=== PATIENT | male | born 1985 | race Asian ===

== ENCOUNTER 2024-05-08 08:10 | Outpatient (CLI) | payer BC, SELFPAY ==
[2024-05-08 09:34] LABS: Alanine Aminotransferase 37 U/L (6-50); Alkaline Phosphatase 55 U/L (38-126); Anion Gap 10 mmol/L (4-12); Aspartate Amino Transferase 28 U/L (17-59); Bilirubin,Total 0.9 mg/dL (0.2-1.3); Blood Urea Nitrogen 23 mg/dL (9-20); Calcium 9.2 mg/dL (8.4-10.2); Carbon Dioxide 22 mmol/L (22-30); Chloride 108 mmol/L (98-107); Cholesterol 242 mg/dL (0-200); Estimated Glomerular Filt Rate > 60; Glucose 92 mg/dL (65-110); HDL Direct 54 mg/dL; Sodium 140 mmol/L (137-145); Triglycerides 160 mg/dL (<150)
[2024-05-08 09:46] LABS: LDL Cholesterol Direct 155 mg/dL
== END 2024-05-08 08:11 | disposition home or self-care (01) ==
LOC: ANHLAB 08:13
PROVIDERS: PCP Emergency Medicine; Visit Provider Internal Medicine Cardiovascular Disease
DX: E78.5 Hyperlipidemia, unspecified (principal)
CPT/HCPCS: 36415; 80053; 80061

== ENCOUNTER 2024-05-15 09:18 | Outpatient (CLI) | payer BC, SELFPAY ==
--- NOTE | 2024-05-15 09:25 | EST_ITS ---
Patient Info Name: Juan Cooper Age: 38 years : 1985 Gender: Male Ht: 72 in Wt: 191 lbs BSA: 2.11 m2 HR: 58 bpm BP: 129 / 85 mmHg Heart Rhythm: Sinus Rhythm Exam Date: 05/15/2024 9:34 AM Exam Location: Echo Lab Patient Status: Outpatient Admit Date: 05/15/2024 Staff Ordering Physician: Ruben Mayfield DO Attending Provider: Ruben Mayfield DO Exercise Technologist: Izabel Singh CT Exercise Physician: Ruben Mayfield DO Exam Type: CA stress test treadmill Study Info Indications R07.89 - Other chest pain A treadmill exercise stress test was performed. Summary 1. 1. Negative Juan exercise stress test for ischemic ST changes by ECG criteria. 2. 2. Good functional capacity, achieving 12 METs of workload. 3. 3. Appropriate HR response to exercise. 4. 4. Appropriate HR recovery at 1 minute post exercise. 5. 5. No imaging with stress testing. 6. 6. Patient informed of the above results. Protocol: Juan Stress ECG Details Stage: REST Duration (min): 0 min : 58 sec Speed (mph): 0.0 Grade (%): 0 HR (bpm): 59 SBP (mmHg): 129 DBP (mmHg): 85 METS: --- Stage: REST Duration (min): 18 min : 56 sec Speed (mph): 0.0 Grade (%): 0 HR (bpm): 69 SBP (mmHg): 129 DBP (mmHg): 85 METS: --- Stage: STAGE 1 Duration (min): 1 min : 0 sec Speed (mph): 1.7 Grade (%): 10 HR (bpm): 87 SBP (mmHg): 129 DBP (mmHg): 85 METS: --- Stage: STAGE 1 Duration (min): 2 min : 0 sec Speed (mph): 1.7 Grade (%): 10 HR (bpm): 86 SBP (mmHg): 129 DBP (mmHg): 85 METS: --- Stage: STAGE 1 Duration (min): 3 min : 0 sec Speed (mph): 1.7 Grade (%): 10 HR (bpm): 89 SBP (mmHg): 135 DBP (mmHg): 81 METS: --- Stage: STAGE 2 Duration (min): 1 min : 0 sec Speed (mph): 2.5 Grade (%): 12 HR (bpm): 102 SBP (mmHg): 135 DBP (mmHg): 81 METS: --- Stage: STAGE 2 Duration (min): 2 min : 0 sec Speed (mph): 2.5 Grade (%): 12 HR (bpm): 103 SBP (mmHg): 148 DBP (mmHg): 78 METS: --- Stage: STAGE 2 Duration (min): 3 min : 0 sec Speed (mph): 2.5 Grade (%): 12 HR (bpm): 105 SBP (mmHg): 148 DBP (mmHg): 78 METS: --- Stage: STAGE 3 Duration (min): 1 min : 0 sec Speed (mph): 3.4 Grade (%): 14 HR (bpm): 120 SBP (mmHg): 140 DBP (mmHg): 73 METS: --- Stage: STAGE 3 Duration (min): 2 min : 0 sec Speed (mph): 3.4 Grade (%): 14 HR (bpm): 129 SBP (mmHg): 140 DBP (mmHg): 73 METS: --- Stage: STAGE 3 Duration (min): 3 min : 0 sec Speed (mph): 3.4 Grade (%): 14 HR (bpm): 134 SBP (mmHg): 153 DBP (mmHg): 72 METS: --- Stage: STAGE 4 Duration (min): 1 min : 0 sec Speed (mph): 4.2 Grade (%): 16 HR (bpm): 146 SBP (mmHg): 153 DBP (mmHg): 72 METS: --- Stage: STAGE 4 Duration (min): 2 min : 0 sec Speed (mph): 4.2 Grade (%): 16 HR (bpm): 162 SBP (mmHg): 161 DBP (mmHg): 69 METS: --- -
== END 2024-05-15 09:19 | disposition home or self-care (01) ==
LOC: ANHCARD 09:19
PROVIDERS: PCP Emergency Medicine; Visit Provider Internal Medicine Cardiovascular Disease
DX: R07.89 Other chest pain (principal)
CPT/HCPCS: 93017

== ENCOUNTER 2024-08-25 08:44 | Outpatient (CLI) | payer BC, SELFPAY ==
[2024-08-25 10:25] LABS: Cholesterol 228 mg/dL (0-200); HDL Direct 57 mg/dL; Triglycerides 169 mg/dL (<150)
[2024-08-25 10:36] LABS: LDL Cholesterol Direct 121 mg/dL
== END 2024-08-25 08:45 | disposition home or self-care (01) ==
PROVIDERS: PCP Emergency Medicine; Visit Provider Internal Medicine Cardiovascular Disease
DX: E78.5 Hyperlipidemia, unspecified (principal)
CPT/HCPCS: 36415; 80061

== ENCOUNTER 2025-04-21 09:41 | Outpatient (CLI) | payer BC, SELFPAY ==
--- OUTSIDE RECORDS SUMMARY | 2025-04-21 09:59 | XMS_ITS | Continuity of Care Document ---
Author Organization [facility] Address [address] [place] [address] [place] [address] Phone Care Team Providers Care Guest Services Coordinator Name Role Phone Raffaele Nñuez MD Unavailable Unavailable Allergies, Adverse Reactions, Alerts Substance Reaction Status Criticality No Known Allergies Active No Inform ation Medications Medication Instructions Dosage Effective Dates (start - stop) Status Comments Protonix 40 mg tablet,delayed release take 1 tablet by oral route every day 40 MG - Active Procedures Procedure Date PREV VISIT, NEW, AGE 40-64 OFFICE/OUTPATIENT VISIT, [facility] Advance Directives Directive Yes / No Effective Date File Name No Information Encounters Encounter Description Practice Location Reason(s) For Visit Diagnoses Date Provider Providers Copied on Encounter [facility], [address] [place], [id number], tel:[phone] [facility] No Information [address] Jo[address]na. [address] [place], [place], [id number] , [place]. [phone] PREV VISIT, NEW, AGE 40-64 [facility], [address] [place] [place], [place], [id number], [place] tel:[phone] [facility] Medicine physical (chief complaint) Mixed hyperlipidemiaGERD w/o esophagitisAnt chest-wall painEncounter for general adult medical exam w abnormal findings 5 Joaquin Castorena. [address] [facility] [place], [place], [id number] , [place]. tel:[phone] Family History Family Member Type Diagnosis Age At Onset Mother Problem Alive and well Brother Problem Alive and well Father Problem no contact Sister Problem Diabetes mellitus Payers Payer name Insurance type Covered green party ID Authoriza tirhoda(s) No Information Social History Type Description Quantity Date Captured Comments Sex Male Smoking Status No Information Chief Complaint And Reason For Visit No Information Plan Of Treatment Date Type Action Status Appointment Juan Cooper BOOKED History Of Present Illness Encounter Date Complaint History Of Prese nt Illness physical Pt needs annual physical pt c/o chronic left upper shoulder pain near the scapular and also left midsternal pain for at least 8 months Pt states that the pain is triggered by turning his body and sometimes without any trigger factor. Pt also notices occasional radiating pain down to left upper arm Pt is seeing cardiology and he had negative CTA of heart and stress test. Pt has HLP Pt has been working on diet and exercise. Pt also has frequent GERD. pt denies any nausea, vomiting, early satiety, bowel change, etc . Instructions Date Instruction Additional Infor mation No Information Assessments Type Assessment Date No Information
--- OUTSIDE RECORDS SUMMARY | 2025-04-21 09:59 | XMS_ITS | Continuity of Care Document ---
Author Organization [facility] Address [address] [place] [address] Phone Care Team Providers Care Casing Crew Name Role Phone Provider, Conversion Unavailable Unavailable Allergies, Adverse Reactions, Alerts Substance Reaction Status Criticality No Known Allergies Active No Inform ation Advance Directives Directive Yes / No Effective Date File Name No Information Encounters Encounter Description Practice Location Reason(s) For Visit Diagnoses Date Provider Providers Copied on Encounter [facility], [address], [place], [address], [place] tel:[phone] Conversion Location No Information Provider Conversio n. . Family History Family Member Type Diagnosis Age At Onset No Information Payers Payer name Insurance type Covered green party ID Authoriza tion(s) No Information Social History Type Description Quantity Date Captured Comments Sex Male Smoking Status No Information Chief Complaint And Reason For Visit No Information Reason For Referral Reason For Referral No Information History Of Present Illness Encounter Date Complaint History Of Prese nt Illness No Information Functional Status Date Functional Assessmen t No Information Instructions Date Instruction Additional Infor mation No Information Assessments Type Assessment Date No Information Patient Care Teams Name Effective Dates (start - stop) Status Members No Information
--- OUTSIDE RECORDS SUMMARY | 2025-04-21 09:59 | XMS_ITS | Continuity of Care Document ---
Author Organization [facility] Address [address] [place] [address] Phone Care Team Providers Care Haul Driver Name Role Phone Unavailable Unavailable Unavailable Procedures Procedure Date OFFICE CONSULTATION URINALYSIS, AUTO W/SCOPE ASSAY OF URINE CREATININE Advance Directives Directive Yes / No Effective Date File Name No Information Encounters Encounter Description Practice Location Reason(s) For Visit Diagnoses Date Provider Providers Copied on Encounter [facility], [address] [place] [address], [id number], tel:[phone] Conversion No Information 0 No Information OFFICE CONSULTATION [facility], [address] [place] [address], [id number], tel:[phone] No Information 0 No Information Family History Family Member Type Diagnosis Age At Onset No Information Payers Payer name Insurance type Covered constitution party ID Authoriza tion(s) No Information Social [...]
--- OUTSIDE RECORDS SUMMARY | 2025-04-21 09:59 | XMS_ITS | Referral Summary ---
Author Organization [facility] Address [address] [place] [address] Care Team Providers Care Vp Marketing Name Role Phone Arnulfo Moya MD Primary Care Provider [phone] Allergies No known active allergies Social History Tobacco Use Types Packs/Day Years Used Date Smoking Tobacco: Never Assessed Personal Safety Answer Date Recorded Getting School Help Needed Not on file 07/29 Sex and Gender Information Value Date Recorded Sex Assigned at Not on file Legal Sex Male 8:59 AM CDT Gender Identity Male 08/18/2024 10:14 PM CDT Sexual Orientation Not on file Last Filed Vital Signs Vital Sign Reading Time Taken Comments Blood Pressure 128/92 08/20/2024 9:20 AM CDT Pulse 47 08/20/2024 9:20 AM CDT Temperature - - Respiratory Rate 13 08/20/2024 9:20 AM CDT Oxygen Saturation - - Inhaled Oxygen Concentration - - Weight 82.6 kg (182 lb) 08/20/2024 9:10 AM CDT Height 182.9 cm (6') 08/20/2024 9:10 AM CDT Body Mass Index 24.68 08/20/2024 9:10 AM CDT Plan of Treatment Not on file Insurance [employer] OOS [employer] O[employer] Care Teams Vp Marketing Relationship Specialty Start Date End Date Arnulfo Moya MD [facility] [facility] [place] [address] PCP - General Family Medicine 08/20/24
--- OUTSIDE RECORDS SUMMARY | 2025-04-21 09:59 | XMS_ITS | Clinical Summary ---
Author Organization [facility] Address [address] [place] [address] Care Team Providers Care Diversified Crops Supervisor Name Role Phone Arnulfo Moya MD Primary Care Provider [phone] Allergies No known active allergies Social History [...] 08/20/2024 9:10 AM CDT Plan of Treatment Health Maintenance Due Date Last Done Comments Depression Screening 1985 Hepatitis C Screening 1985 DTaP/Tdap/Td Vaccine (1 - Tdap) 1994 Varicella Vaccines (1 of 2 - 13+ 2-dose series) 1996 Hepatitis B Screening 2001 Regular Well Visit/Exam 18-64 2001 Influenza Vaccine (Season Ended) 2025 HPV Vaccines Aged Out No longer eligi ble based on patient's age to complete this topic Pneumococcal vaccine <65 Aged Out No longer eligible based on patient's age to complete this topic Insurance [employer] ACCESS OOS [employer] ACCESS OOS Care Teams Diversified Crops Supervisor Relationship Specialty Start Date End Date Arnulfo Moya MD [facility] [facility] [place] [address] PCP - General Family Medicine 08/20/24
[2025-04-21 11:24] LABS: Alanine Aminotransferase 29 U/L (6-50); Albumin Level 4.6 g/dL (3.5-5.1); Alkaline Phosphatase 38 U/L (38-126); Anion Gap 8 mmol/L (4-12); Aspartate Amino Transferase 29 U/L (17-59); Bilirubin,Total 0.6 mg/dL (0.2-1.3); Blood Urea Nitrogen 13 mg/dL (9-20); Calcium 9.1 mg/dL (8.4-10.2); Carbon Dioxide 25 mmol/L (22-30); Chloride 106 mmol/L (98-107); Cholesterol 241 mg/dL (0-200); Estimated Glomerular Filt Rate > 60; Glucose 95 mg/dL (65-110); HDL Direct 57 mg/dL; Potassium 4.2 mmol/L (3.4-5.0); Sodium 139 mmol/L (137-145); Total Protein 7.4 g/dL (6.3-8.2); Triglycerides 181 mg/dL (<150)
[2025-04-21 11:37] LABS: LDL Cholesterol Direct 139 mg/dL
== END 2025-04-21 09:42 | disposition home or self-care (01) ==
LOC: ANHLAB 09:42
PROVIDERS: PCP Emergency Medicine; Visit Provider Internal Medicine Cardiovascular Disease
DX: E78.5 Hyperlipidemia, unspecified (principal)
CPT/HCPCS: 36415; 80053; 80061